=== PATIENT | female | born 1960 | race American Indian/Alaskan Native ===

== ENCOUNTER 2017-05-11 15:54 | Inpatient (IN) | payer OTHER ==
[2017-05-11 17:13] LABS: Alanine Aminotransferase 25 units/L (7-56); Albumin 4.5 g/dL (3.9-5); Albumin/Globulin Ratio 1.3 %; Alkaline Phosphatase 52 units/L (35-129); Anion Gap 20 mmol/L; BUN/Creatinine Ratio 12.22; Blood Urea Nitrogen 11 mg/dL (7-17); Calcium 10.6 mg/dL (8.4-10.2); Carbon Dioxide 26 mmol/L (22-30); Chloride 99.9 mmol/L (98-107); Glucose 91 mg/dL (65-100); Lipase 27 units/L (13-60); Potassium 3.8 mmol/L (3.6-5.0); Sodium 142 mmol/L (137-145); Total Protein 8.1 g/dL (6.3-8.2)
[2017-05-11 17:28] LABS: Basophils % (Auto) 0.9 % (0.0-1.8); Eosinophils % (Auto) 4.3 % (0.0-4.3); Hematocrit 38.3 % (30.3-42.9); Hemoglobin 12.1 gm/dl (10.1-14.3); Mean Corpuscular HGB Conc 32 % (30-34); Mean Corpuscular Hemoglobin 29 pg (28-32); Mean Corpuscular Volume 92 fl (79-97); Platelet Count 326 K/mm3 (140-440); Red Blood Count 4.16 M/mm3 (3.65-5.03); Red Cell Distribution Width 15.3 % (13.2-15.2); White Blood Count 6.1 K/mm3 (4.5-11.0)
[2017-05-11 17:48] LABS: Bilirubin,Urine NEG (Negative); Blood,Urine SM (Negative); Ketones,Urine NEG (Negative); Leukocyte Esterase,Urine TR (Negative); Mucus,Urine FEW /HPF; Nitrite,Urine NEG (Negative); Protein,Urine <15 mg/dL mg/dL (Negative)
[2017-05-11] MEDS ORDERED: NACL 0.9% 1000 ML 1,000 ML IV ONE (19:05)
[2017-05-11] MEDS ORDERED: ZOFRAN IV ONE (19:05)
[2017-05-11] MEDS ORDERED: MORPHINE IV ONE (19:05)
--- NOTE | 2017-05-11 19:56 | Cat Scan Report ---
FINAL REPORT EXAM: CT ABDOMEN PELVIS WO CON HISTORY: abd pain TECHNIQUE: CT images obtained through the Abdomen and Pelvis without contrast. Transaxial,coronal and sagittal reformats are provided. PRIORS: None. FINDINGS: Imaged intrathoracic contents are remarkable for a small pericardial effusion as well as coronary artery disease. Right renal nonobstructive stones measure 1 millimeter. Kidneys are normal in size, axis and position. No hydronephrosis or other nephrolithiasis. The ureters are normal in course and caliber. No stones are seen within the urinary bladder. Multiple pelvic phleboliths. The liver, gallbladder, pancreas, spleen, and adrenal glands demonstrate an unremarkable noncontrast appearance. Hollow enteric organs are normal in course and caliber. No acute appendicitis. Diverticulosis without surrounding inflammatory findings. No intra-abdominal free air/fluid or lymphadenopathy. Aorta is normal in course and caliber. Superficial soft tissues are remarkable for a midline laparotomy scar. No acute or aggressive appearing skeletal findings. IMPRESSION: No CT evidence of obstructive uropathy or other acute abdominal or pelvic findings. Small pericardial effusion. Correlation with symptoms of pericarditis requested. Consider echocardiogram for further evaluation.
[2017-05-11] MEDS ORDERED: NACL ONE (22:00)
--- NOTE | 2017-05-11 22:42 | Cat Scan Report ---
FINAL REPORT EXAM: CT ANGIO CHEST HISTORY: chest pain TECHNIQUE: CT imaging obtained through the chest in pulmonary angiographic phase following intravenous administration of contrast. Transaxial, Coronal and sagittal reformats including maximal intensity projections are provided. PRIORS: CT abdomen and pelvis of the same date. FINDINGS: Cardiomegaly. Small pericardial effusion. Coronary artery disease is present. Mildly enlarged main pulmonary artery. Well opacified pulmonary arterial tree. No pulmonary embolism. Thoracic aorta is normal in course and caliber. No pneumothorax, effusion or focal airspace disease. Linear bibasilar atelectasis/scarring. The central airways are patent. No bronchiectasis. Please see CT abdomen and pelvis of the same date. The superficial soft tissues are unremarkable. No acute bony abnormality or worrisome osseous lesions identified. IMPRESSION: No pulmonary embolism. Cardiomegaly with pericardial effusion. Correlation for pericarditis and heart failure is requested. Consider echocardiogram.
[2017-05-11] MEDS ORDERED: ASPIRIN PO ONE (23:03)
--- NOTE | 2017-05-11 23:10 | Emergency Department Report ---
HPI - General Chief Complaint: Abdominal Pain Time Seen by Provider: 05/11/17 18:41 - HPI HPI: Chief complaint: Chest and abdominal pain. This is a 56-year-old black female who presents to the ED with chest pain and right and left side, abdominal pain. Patient states pain is sharp, 7 out of 10 , with radiation to back. Patient denies any fever, chills, nausea vomiting. Patient does have a history of a blood pressure but has been without medication for a few months. She states she's moved here from [place] and has not been able to get a primary care doctor.. ED Past Medical Hx - Past Medical History Hx Hypertension: Yes Hx COPD: Yes Additional medical history: THYROID. HIGH CHOLESTEROL. SCIATICA. SLEEP APNEA - CPAP - Surgical History Hx Appendectomy: Yes Additional Surgical History: . HERNIA REPAIR - Social History Smoking Status: Former Smoker Substance Use Type: Prescribed ED Review of Systems ROS: Stated complaint: ABD PAIN Other details as noted in HPI Comment: All other systems reviewed and negative Cardiovascular: chest pain Gastrointestinal: abdominal pain, nausea Physical Exam - Physical Exam Vital Signs: Vital Signs 05/11/17 05/11/17 05/11/17 16:05 17:13 17:15 Temperature 98.3 F 99.3 F Pulse Rate 91 H 79 Respiratory 17 18 Rate Blood Pressure 132/90 Blood Pressure 136/84 [Left] O2 Sat by Pulse 96 99 100 Oximetry 05/11/17 19:58 Temperature Pulse Rate 82 Respiratory 18 Rate Blood Pressure Blood Pressure 132/84 [Left] O2 Sat by Pulse 91 Oximetry Physical Exam: Gen. alert and oriented 3 in no distress Head atraumatic normocephalic Eyes PERR LA EOMI Chest regular rate and rhythm normal S1-S2 lungs clear bilaterally Abdomen soft nondistended Back no point tenderness paravertebral tenderness Neuro no focal deficit. Psych normal mood. ED Course Vital Signs 05/11/17 05/11/17 05/11/17 16:05 17:13 17:15 Temperature 98.3 F 99.3 F Pulse Rate 91 H 79 Respiratory 17 18 Rate Blood Pressure 132/90 Blood Pressure 136/84 [Left] O2 Sat by Pulse 96 99 100 Oximetry 05/11/17 19:58 Temperature Pulse Rate 82 Respiratory 18 Rate Blood Pressure Blood Pressure 132/84 [Left] O2 Sat by Pulse 91 Oximetry ED Medical Decision Making - Lab Data Result diagrams: 05/11/17 16:23 05/11/17 16:23 Critical care attestation.: If time is entered above; I have spent that time in minutes in the direct care of this critically ill patient, excluding procedure time. ED Disposition Clinical Impression: Pericardial effusion Disposition: OP ADMIT IP TO THIS HOSP Is pt being admited?: Yes Does the pt Need Aspirin: No Condition: Stable Instructions: Abdominal Pain (ED) Referrals: PRIMARY CARE, [Primary Care Provider] - 3-5 Days
[2017-05-11] MEDS ORDERED: ASPIRIN ONE (23:12)
[2017-05-12] MEDS ORDERED: MILK OF MAGNESIA PO PRN (06:36)
[2017-05-12] MEDS ORDERED: TYLENOL PO PRN (06:36)
[2017-05-12] MEDS ORDERED: DILAUDID IV PRN (06:36)
[2017-05-12] MEDS ORDERED: DULCOLAX PR PRN (06:36)
[2017-05-12] MEDS ORDERED: ZOFRAN IV PRN (06:36)
--- NOTE | 2017-05-12 06:45 | History and Physical Report ---
History of Present Illness Date of examination: 05/11/17 Date of admission: 05/11/17 23:04 Chief complaint: Chief complaint: #1 Left-sided chest pain for 1 day #2 bilateral flank pain for 1 day History of present illness: History of present illness: 56-year-old female with history of hypertension comes in for left-sided chest pain with radiation to the back of one day duration. Patient also has bilateral flank pain. No shortness of breath. No nausea no vomiting. No fever no chills. No recent travel. No diaphoresis no palpitations. Slight shortness of breath present. On exertion. - Past Medical History Hx Hypertension: Yes Hx COPD: Yes Additional medical history: THYROID. HIGH CHOLESTEROL. SCIATICA. SLEEP APNEA - CPAP - Surgical History Hx Appendectomy: Yes Additional Surgical History: . HERNIA REPAIR - Social History Smoking Status: Former Smoker Substance Use Type: Prescribed Review of System: Constitutional: no fever, no chills, no weight loss Ears, eyes, nose, mouth and throat: no nasal congestion, no nasal discharge, no sinus pressure, no vision change, no red eye. Neck: No neck pain or rigidity. Cardiovascular: chest pain, no orthopnea, no palpitations, no leg swelling .see HPI Respiratory: No shortness of breath, no cough, no congestion, no wheezing Gastrointestinal: abdominal pain, no nausea, no vomiting Genitourinary : no dysuria, no hematuria Musculoskeletal: no joint swelling or muscle ache Integumentary: no rash, no pruritis Neurological: no parathesias, no numbness, no tingling Endocrine: no cold or heat intolerance, no polyuria or polydipsia Hematologic/Lymphatic: no easy bruising, no easy bleeding, no gland swelling Allergic/Immunologic: no urticaria, no angioedema. Medications and Allergies Allergies Allergy/AdvReac Type Severity Reaction Status Date / Time No Known Allergies Allergy Verified 05/11/17 19:57 Home Medications Medication Instructions Recorded Confirmed Last Taken Type Levothyroxine [Synthroid] 50 mcg PO QAM 05/12/17 05/12/17 Unknown History Pravastatin Sodium [Pravastatin] 10 mg PO QHS 05/12/17 05/12/17 Unknown History amLODIPine [Norvasc] 10 mg PO DAILY 05/12/17 05/12/17 Unknown History Active Meds: Active Medications Acetaminophen (Tylenol) 650 mg PO Q4H PRN PRN Reason: Pain MILD(1-3)/Fever >100.5/[place] Amlodipine Besylate (Norvasc) 10 mg PO DAILY [facility] Bisacodyl (Dulcolax) 10 mg HI QDAY PRN PRN Reason: Constipation unrelieved by MOM Hydromorphone HCl (Dilaudid) 0.5 mg IV Q3H PRN PRN Reason: Pain , Severe (7-10) Dextrose/Sodium Chloride (D5ns) 1,000 mls @ 75 mls/hr IV DIRECT HERMINIO Levothyroxine Sodium (Synthroid) 50 mcg PO QAM@0600 [facility] Magnesium Hydroxide (Milk Of Magnesia) 30 ml PO Q4H PRN PRN Reason: Constipation Ondansetron HCl (Zofran) 4 mg IV Q8H PRN PRN Reason: N/V unrelieved by Reglan Oxycodone/Acetaminophen (Percocet 5/325) 1 tab PO Q6H PRN PRN Reason: Pain, Moderate (4-6) Simvastatin (Zocor) 10 mg PO QHS [facility] Exam - Physical Exam Narrative exam: Lying in bed comfortably - Constitutional Vitals: Temp Pulse Resp BP Pulse Ox 98.3 F 78 18 139/86 98 05/12/17 01:33 05/12/17 01:33 05/12/17 01:33 05/12/17 01:33 05/12/17 01:33 General appearance: Present: no acute distress, well-nourished - EENT Eyes: Present: PERRL ENT: hearing intact, clear oral mucosa - Neck Neck: Present: supple, normal ROM - Respiratory Respiratory effort: normal Respiratory: bilateral: CTA - Cardiovascular Heart rate: 77 Rhythm: regular Heart Sounds: Present: S1 & S2. Absent: rub, click - Extremities Extremities: pulses symmetrical, No edema Peripheral Pulses: within normal limits - Abdominal General gastrointestinal: Present: soft, non-tender, non-distended, normal bowel sounds Female genitourinary: Present: normal - Rectal Rectal Exam: deferred - Integumentary Integumentary: Present: clear, warm, dry - Musculoskeletal Musculoskeletal: gait normal, strength equal bilaterally - Psychiatric Psychiatric: appropriate mood/affect, intact judgment & insight - Neurologic Neurologic: CNII-XII intact, moves all extremities - Allied Health Allied health notes reviewed: nursing, case management Results - Labs CBC & Chem 7: 05/11/17 16:23 05/11/17 16:23 Labs: Laboratory Last Values WBC 6.1 K/mm3 (4.5-11.0) 05/11/17 16:23 RBC 4.16 M/mm3 (3.65-5.03) 05/11/17 16:23 Hgb 12.1 gm/dl (10.1-14.3) 05/11/17 16:23 Hct 38.3 % (30.3-42.9) 05/11/17 16:23 MCV 92 fl (79-97) 05/11/17 16:23 MCH 29 pg (28-32) 05/11/17 16:23 MCHC 32 % (30-34) 05/11/17 16:23 RDW 15.3 % (13.2-15.2) H 05/11/17 16:23 Plt Count 326 K/mm3 (140-440) 05/11/17 16:23 Lymph % (Auto) 36.6 % (13.4-35.0) H 05/11/17 16:23 [place] % (Auto) 8.5 % (0.0-7.3) H 05/11/17 16:23 Eos % (Auto) 4.3 % (0.0-4.3) 05/11/17 16:23 Baso % (Auto) 0.9 % (0.0-1.8) 05/11/17 16:23 Lymph # 2.2 K/mm3 (1.2-5.4) 05/11/17 16:23 [place] # 0.5 K/mm3 (0.0-0.8) 05/11/17 16:23 Eos # 0.3 K/mm3 (0.0-0.4) 05/11/17 16:23 Baso # 0.1 K/mm3 (0.0-0.1) 05/11/17 16:23 Seg Neutrophils % 49.7 % (40.0-70.0) 05/11/17 16:23 Seg Neutrophils # 3.0 K/mm3 (1.8-7.7) 05/11/17 16:23 Sodium 142 mmol/L (137-145) 05/11/17 16:23 Potassium 3.8 mmol/L (3.6-5.0) 05/11/17 16:23 Chloride 99.9 mmol/L (98-107) 05/11/17 16:23 Carbon Dioxide 26 mmol/L (22-30) 05/11/17 16:23 Anion Gap 20 mmol/L 05/11/17 16:23 BUN 11 mg/dL (7-17) 05/11/17 16:23 Creatinine 0.9 mg/dL (0.7-1.2) 05/11/17 16:23 Estimated GFR > 60 ml/min 05/11/17 16:23 BUN/Creatinine Ratio 12.22 % 05/11/17 16:23 Glucose 91 mg/dL (65-100) 05/11/17 16:23 Calcium 10.6 mg/dL (8.4-10.2) H 05/11/17 16:23 Total Bilirubin 0.40 mg/dL (0.1-1.2) 05/11/17 16:23 AST 46 units/L (5-40) H 05/11/17 16:23 ALT 25 units/L (7-56) 05/11/17 16:23 Alkaline Phosphatase 52 units/L (35-129) 05/11/17 16:23 Troponin T 0.029 ng/mL (0.00-0.029) 05/11/17 22:56 NT-Pro-B Natriuret Pep 22.30 pg/mL (0-900) 05/11/17 22:56 Total Protein 8.1 g/dL (6.3-8.2) 05/11/17 16:23 Albumin 4.5 g/dL (3.9-5) 05/11/17 16:23 Albumin/Globulin Ratio 1.3 % 05/11/17 16:23 Lipase 27 units/L (13-60) 05/11/17 16:23 Urine Color Yellow (Yellow) 05/11/17 16:32 Urine Turbidity Clear (Clear) 05/11/17 16:32 Urine pH 6.0 (5.0-7.0) 05/11/17 16:32 Ur Specific [place] 1.014 (1.003-1.030) 05/11/17 16:32 Urine Protein <15 mg/dl mg/dL (Negative) 05/11/17 16:32 Urine Glucose (UA) Neg mg/dL (Negative) 05/11/17 16:32 Urine Ketones Neg mg/dL (Negative) 05/11/17 16:32 Urine Blood Sm (Negative) 05/11/17 16:32 Urine Nitrite Neg (Negative) 05/11/17 16:32 Urine Bilirubin Neg (Negative) 05/11/17 16:32 Urine Urobilinogen 2.0 mg/dL (<2.0) 05/11/17 16:32 Ur Leukocyte Esterase Tr (Negative) 05/11/17 16:32 Urine WBC (Auto) 1.0 /HPF (0.0-6.0) 05/11/17 16:32 Urine RBC (Auto) 1.0 /HPF (0.0-6.0) 05/11/17 16:32 U Epithel Cells (Auto) 2.0 /HPF (0-13.0) 05/11/17 16:32 Hyaline Casts 1 /LPF 05/11/17 16:32 Urine Mucus Few /HPF 05/11/17 16:32 Short CBC 05/11/17 Range/Units 16:23 WBC 6.1 (4.5-11.0) K/mm3 Hgb 12.1 (10.1-14.3) gm/dl Hct 38.3 (30.3-42.9) % Plt Count 326 (140-440) K/mm3 BMP 05/11/17 16:23 Sodium 142 Potassium 3.8 Chloride 99.9 Carbon Dioxide 26 BUN 11 Creatinine 0.9 Glucose 91 Calcium 10.6 H Cardiac Enzymes 05/11/17 Range/Units 22:56 Troponin T 0.029 (0.00-0.029) ng/mL Liver Function 05/11/17 Range/Units 16:23 Total Bilirubin 0.40 (0.1-1.2) mg/dL AST 46 H (5-40) units/L ALT 25 (7-56) units/L Alkaline Phosphatase 52 (35-129) units/L Albumin 4.5 (3.9-5) g/dL Urine 05/11/17 Range/Units 16:32 Urine Color Yellow (Yellow) Urine pH 6.0 (5.0-7.0) Ur Specific [place] 1.014 (1.003-1.030) Urine Protein <15 mg/dl (Negative) mg/dL Urine Glucose (UA) Neg (Negative) mg/dL - Imaging and Cardiology EKG: report reviewed (normal sinus rhythm: heart rate of 77/m) CT scan - abdomen: report reviewed (no acute abdominal findings small pericardial effusion correlation with symptoms of pericarditis consider echocardiogram for further evaluation) CT scan - chest: report reviewed (CT angio cardiomegaly with pericardial effusion correlation for pericarditis and heart failure is requested consider echocardiogram) Assessment and Plan Advance Directives: Yes (full code) VTE prophylaxis?: Chemical Plan of care discussed with patient/family: Yes - Patient Problems (1) Acute coronary syndrome Current Visit: Yes Status: Acute Plan to address problem: Serial cardiac enzymes and Lexiscan (2) Pericardial effusion Current Visit: Yes Status: Acute Plan to address problem: With pericarditis. We will get echocardiogram for better delineation of pericardial effusion. Also cardiology consult requested by [facility] who called today. (3) Hypertension Current Visit: Yes Status: Chronic Qualifiers: Hypertension type: essential hypertension Qualified Code(s): I10 - Essential (primary) hypertension Plan to address problem: Continue antihypertensives (4) Hypothyroidism Current Visit: Yes Status: Chronic Qualifiers: Hypothyroidism type: acquired Qualified Code(s): E03.9 - Hypothyroidism, unspecified Plan to address problem: Continue Synthroid (5) DVT prophylaxis Current Visit: Yes Status: Acute Plan to address problem: On Lovenox 40 mg subcutaneous daily
[2017-05-12 07:46] LABS: Creatine Kinase MB 15.4 ng/mL (0.0-4.0)
[2017-05-12] MEDS ORDERED: LEXISCAN IV ONE ×2 (10:03→10:06)
[2017-05-12] MEDS ORDERED: PERCOCET 5/325 ONE (11:52)
--- NOTE | 2017-05-12 11:59 | Progress Note ---
Assessment and Plan Assessment and plan: Patient is a 56-year-old woman history of COPD, dyslipidemia and hypertension who presents to [facility] emergency department with chest pains. Troponins are negative 2 but she does have elevated CPK. CT abdomen and pelvis without contrast read as no CT evidence of obstructive uropathy or other acute abdominal pelvic finding, small pericardial effusion, correlation with symptoms of pericarditis requested, consider echocardiogram for further evaluation. CTA of the chest read as no pulmonary embolism, cardiomegaly with pericardial effusion. Echocardiogram, stress test pending -Chest pain appears to be atypical: Stress test pending -Pericardial effusion: Echocardiogram pending -Mild rhabdomyolysis: Start IV fluids and repeat BMP in a.m. with CK -Hypercalemia, mild: Hydrate and repeat levels -DVT prophylaxis: Subcutaneous Lovenox Full code Disposition: Follow-up echocardiogram stress test and if unremarkable and DC tomorrow History Interval history: Patient seen and examined. Follow up on current diagnosis/chest pain. Overnight uneventful. No sob, n/v or severe headaches. Imaging, old records, testing, labs , nursing notes reviewed. She complains of diffuse bilateral chest pain and asking for something stronger morphine. Recently moved to [place] from [facility] with no prior records here. Hospitalist Physical - Physical exam Narrative exam: GEN: WDWN, NAD, AWAKE, ALERT, ORIENTATED x 3 HEENT: NCAT, PERRL, EOMI, OP CLEAR NECK: SUPPLE, NO THYROMEGALY, NO JVD, NO LAD CVS: RRR, NORMAL S1S2 LUNGS/CHEST: CTA B, NORMAL CHEST EXPANSION B, GOOD AIR ENTRY B, reproducible chest wall tenderness ABD: SOFT, NTND, GBS, NO REBOUND OR GUARDING EXT/SKIN: NO SIGNIFICANT EDEMA OR RASH MSK: FROM X 4 EXTREMITIES NEURO: CN 2-12 GROSSLY INTACT, NO FOCAL DEFICITS PSY: Anxious - Constitutional Vitals: Temp Pulse Resp BP Pulse Ox 98.0 F 68 20 125/76 96 05/12/17 08:29 05/12/17 10:00 05/12/17 10:00 05/12/17 08:29 05/12/17 10:00 General appearance: Present: no acute distress, well-nourished Results - Labs CBC & Chem 7: 05/11/17 16:23 05/11/17 16:23 Labs: Laboratory Last Values WBC 6.1 K/mm3 (4.5-11.0) 05/11/17 16: RBC 4.16 M/mm3 (3.65-5.03) 05/11/17 16:23 Hgb 12.1 gm/dl (10.1-14.3) 05/11/17 16:23 Hct 38.3 % (30.3-42.9) 05/11/17 16:23 MCV 92 fl (79-97) 05/11/17 16:23 MCH 29 pg (28-32) 05/11/17 16:23 MCHC 32 % (30-34) 05/11/17 16:23 RDW 15.3 % (13.2-15.2) H 05/11/17 16:23 Plt Count 326 K/mm3 (140-440) 05/11/17 16:23 Lymph % (Auto) 36.6 % (13.4-35.0) H 05/11/17 16:23 [place] % (Auto) 8.5 % (0.0-7.3) H 05/11/17 16:23 Eos % (Auto) 4.3 % (0.0-4.3) 05/11/17 16:23 Baso % (Auto) 0.9 % (0.0-1.8) 05/11/17 16:23 Lymph # 2.2 K/mm3 (1.2-5.4) 05/11/17 16:23 [place] # 0.5 K/mm3 (0.0-0.8) 05/11/17 16:23 Eos # 0.3 K/mm3 (0.0-0.4) 05/11/17 16:23 Baso # 0.1 K/mm3 (0.0-0.1) 05/11/17 16:23 Seg Neutrophils % 49.7 % (40.0-70.0) 05/11/17 16: Seg Neutrophils # 3.0 K/mm3 (1.8-7.7) 05/11/17 16:23 Sodium 142 mmol/L (137-145) 05/11/17 16:23 Potassium 3.8 mmol/L (3.6-5.0) 05/11/17 16:23 Chloride 99.9 mmol/L (98-107) 05/11/17 16:23 Carbon Dioxide 26 mmol/L (22-30) 05/11/17 16:23 Anion Gap 20 mmol/L 05/11/17 16:23 BUN 11 mg/dL (7-17) 05/11/17 16:23 Creatinine 0.9 mg/dL (0.7-1.2) 05/11/17 16:23 Estimated GFR > 60 ml/min 05/11/17 16:23 BUN/Creatinine Ratio 12.22 % 05/11/17 16:23 Glucose 91 mg/dL (65-100) 05/11/17 16:23 Calcium 10.6 mg/dL (8.4-10.2) H 05/11/17 16:23 Total Bilirubin 0.40 mg/dL (0.1-1.2) 05/11/17 16:23 AST 46 units/L (5-40) H 05/11/17 16:23 ALT 25 units/L (7-56) 05/11/17 16:23 Alkaline Phosphatase 52 units/L (35-129) 05/11/17 16:23 Total Creatine Kinase 1113 units/L (30-135) H 05/12/17 06:46 CK-MB (CK-2) 15.4 ng/mL (0.0-4.0) H 05/12/17 06:46 CK-MB (CK-2) Rel Index 1.3 (0-4) 05/12/17 06:46 Troponin T 0.029 ng/mL (0.00-0.029) 05/12/17 06:46 NT-Pro-B Natriuret Pep 22.30 pg/mL (0-900) 05/11/17 22:56 Total Protein 8.1 g/dL (6.3-8.2) 05/11/17 16:23 Albumin 4.5 g/dL (3.9-5) 05/11/17 16:23 Albumin/Globulin Ratio 1.3 % 05/11/17 16:23 Lipase 27 units/L (13-60) 05/11/17 16:23 Urine Color Yellow (Yellow) 05/11/17 16:32 Urine Turbidity Clear (Clear) 05/11/17 16:32 Urine pH 6.0 (5.0-7.0) 05/11/17 16:32 Ur Specific [place] 1.014 (1.003-1.030) 05/11/17 16:32 Urine Protein <15 mg/dl mg/dL (Negative) 05/11/17 16:32 Urine Glucose (UA) Neg mg/dL (Negative) 05/11/17 16:32 Urine Ketones Neg mg/dL (Negative) 05/11/17 16:32 Urine Blood Sm (Negative) 05/11/17 16:32 Urine Nitrite Neg (Negative) 05/11/17 16:32 Urine Bilirubin Neg (Negative) 05/11/17 16:32 Urine Urobilinogen 2.0 mg/dL (<2.0) 05/11/17 16:32 Ur Leukocyte Esterase Tr (Negative) 05/11/17 16:32 Urine WBC (Auto) 1.0 /HPF (0.0-6.0) 05/11/17 16:32 Urine RBC (Auto) 1.0 /HPF (0.0-6.0) 05/11/17 16:32 U Epithel Cells (Auto) 2.0 /HPF (0-13.0) 05/11/17 16:32 Hyaline Casts 1 /LPF 05/11/17 16:32 Urine Mucus Few /HPF 05/11/17 16:32
--- NOTE | 2017-05-12 12:16 | Admit Criteria Form ---
Admission Criteria Documentation: CARDIOLOGY GRG Clinical Indications for Admission to Inpatient Care ( Place 'X' for any and all applicable criteria): Hospital admission is needed for appropriate care of the patient because of ANY ONE of the following (1): [ ] I. Hemodynamic instability as indicated by ALL of the following (1)(2)(3) (4)(5) [ ]a) Vital signs or other findings not as expected for chronic patient condition or baseline [ ]b) Instability indicated by ANY ONE of the following: [ ]i) Hypotension [ ]ii) Symptomatic Tachycardia unresponsive to treatment ( e.g., analgesia, fluids, sedation as indicated) [ ]iii) Inadequate perfusion indicated by ANY ONE of the following: [ ] 1) Lactic acidosis (> 2 mmol/L) [ ] 2) New abnormal capillary refill (> 3 seconds) [ ] 3) Reduced urine output [ ] 4) New altered mental status [ ]iv) Orthostatic vital sign changes unresponsive to treatment (e.g., fluids) [ ]v) IV inotropic or vasopressor medication required to maintain adequate blood pressure or perfusion [ ] II. Severe heart failure as indicated by ANY ONE of the following(17)(18) [ ]a) Respiratory distress [ ]b) Hypotension [ ]c) Anasarca (refractory to outpatient therapy) [ ]d) Cardiac arrhythmias of immediate concern [ ]e) Myocardial ischemia [ ] III. Cardiac arrhythmias or findings of immediate concern indicated by ANY ONE of the following (19)(20): [ ] a) Heart rhythms that are inherently dangerous or unstable indicated by ANY ONE of the following (21)(22)(23): [ ] i) Resuscitated ventricular fibrillation or cardiac arrest [ ] ii) Ventricular escape rhythm [ ] iii) Sustained ventricular tachycardia (30 seconds or more of ventricular rhythm at greater than 100 beats per minute) [ ] iv) Nonsustained ventricular tachycardia and ANY ONE of the following: [ ] 1) Suspected cardiac ischemia as cause or consequence of ventricular tachycardia [ ] 2) In setting of acute myocarditis [ ] b) Unstable cardiac conduction defects indicated by ANY ONE of the following(23)(24)(25) [ ] i) Type II second-degree atrioventricular block [ ]ii) Third-degree atrioventricular block [ ]iii) New-onset left bundle branch block with suspected myocardial ischemia [ ]c) Any heart rhythm and ANY ONE of the following (21)(22)(26)(27) (28) [ ] i) Continuous long-term ECG monitoring needed (e.g., initiation of drug requiring monitoring for more than 24 hours) [ ] ii) Patient has automatic implanted cardioverter defibrillator that is repeatedly firing, malfunctioning, or in need of immediate adjustment of settings beyond the scope of ambulatory or observation care [ ]d) Heart rhythms of concern due to ANY ONE of the following: [ ] i) Hypotension [ ] ii) Respiratory distress [ ] iii) Association with other significant symptoms (e.g., bradycardia with syncope or ongoing dizziness, supraventricular tachycardia with chest pain (14)(15)(17) [ ] IV. Monitoring for cardiac contusion beyond the scope of observation care needed [A](30)(31)(32) [ ] V. Surgical or device complication (e.g., valve replacement complication , pacemaker dysfunction) (35)(41)(44)(45)(46) [ ] . Inpatient palliative care needed. [B](49) Also use Inpatient Palliative Care Criteria [ ] VII. Nonbacterial thrombotic (marantic) endocarditis (36)(43)(47)(48) [X] VIII. Cardiology condition, symptom, or finding for which emergency and observation care has failed or are not considered appropriate. [ ] IX. Acute valvular disease requiring inpatient as indicated by ANY ONE of the following (41) [ ]a) Acute valvular regurgitation (42) [ ]b) Noninfectious valvulitis (43) [ ]c) Obstructive valve thrombosis [ ]d) Paravalvular leak [ ]e) Other significant valvular disorder remaining after emergency or observation level of care (as appropriate) [X]X. Pericardial disease requiring inpatient treatment as indicated by ANY ONE of the following (33)(34)(35)(36)(37) [ ]a) Suspected tamponade (38)(39)(40) [ ]b) Hemopericardium [X]c) Other significant pericardial disorder remaining after emergency or observation level of care (as appropriate) [ ] XI. Cardiac ischemia beyond scope of emergency and observation care. [ ] XII. Hypertension requiring inpatient treatment as indicated by ANY ONE of the following (6)(7)(8) [ ]a) SBP greater than 220 mm Hg or DBP greater than 120 mmHg despite treatment [ ]b) SBP greater than 140 mm Hg or DBP greater than 100 mm Hg with evidence of acute end organ damage as indicated by ANY ONE of the following [ ] i) Altered mental status [ ] ii) Acute renal failure as indicated by new onset of ANY ONE of the following (9)(10)(11)(12)(13) [ ]1) 3-fold rise in serum creatinine from baseline [ ]2) Serum creatinine greater than 4 mg/dL ( 354 micromoles/L) with acute rise greater than 0.5 mg/dL (44.2 micromoles/L) [ ]3) Reduction of more than 75% in estimated glomerular filtration rate from baseline [ ]4) Estimated glomerular filtration rate less than 35 mL/min/1.73m2 (0.59 mL/sec/1.73m2) in child up to 18 years of age [ ]5) Cessation of urine output indicated by ALL of the following [ ]A. Adequate volume status [ ]B. Inadequate urine output as indicated by ANY ONE of the following [ ]a. Urine output less than 0.3 mL/kg/hr for 24 hours [ ]b. Anuria (urine output less than 0.1 mL/kg/hr) for 12 hours [ ] iii) Aortic dissection [ ] iv) Myocardial Ischemia [ ] v) Left ventricular heart failure [ ]vi) Retinal Hemorrhage [ ]vii) Other significant finding [ ]c) Hypertension in child requiring inpatient treatment as indicated by ALL of the following(14)(15)(16) [ ] i) Outpatient treatment not effective, not available, or not appropriate [ ]ii) SBP or DBP greater than 95th percentile for age [ ]iii) Evidence of acute end organ damage as indicated by ANY ONE of the following [ ]1) Altered mental status [ ]2) Acute renal failure as indicated by new onset of ANY ONE of the following(9)(10)(11)(12)(13) [ ]A. 3-fold rise in serum creatinine from baseline [ ]B. Serum creatinine greater than 4 mg/dL (354 micromoles/L) with acute rise greater than 0.5 mg/dL (44.2 micromoles/L) [ ]C. Reduction of more than 75% in estimated glomerular filtration rate from baseline [ ]D. Estimated glomerular filtration rate less than 35 mL/min/1.73m2 (0.59 mL/sec/1.73m2) in child up to 18 years of age [ ]E. Cessation of urine output indicated by ALL of the following [ ]a. Adequate volume status [ ]b. Inadequate urine output as indicated by ANY ONE of the following [ ]i) Urine output less than 0.3 mL/kg/hr for 24 hours [ ]ii) Anuria ( urine output less than 0.1 mL/kg/hr) for 12 hours [ ]3) Severe headache [ ]4) Visual disturbance [ ]5) Retinal hemorrhage [ ]6) Other significant finding [ ]XIII. Complications of transplanted heart indicated by ANY ONE of the following(61): [ ]a) Acute graft rejection requiring inpatient management (eg, intravenous immunosuppression)(62)(63) [ ]b) Acute graft heart failure indicated by ANY ONE of the following(64): [ ]i) Hemodynamic instability [ ]ii) Cardiac arrhythmias of immediate concern [ ]iii) Pulmonary edema that is very severe (eg, mechanical ventilation needed, imminent or likely, need for 100% oxygen to keep oxygen saturation above 90%) [ ]iv) Pulmonary edema that is persistent as indicated by ALL of the following: [ ]1) New need for oxygen therapy to keep oxygen saturation above 90% (or increased FiO2 need from baseline) [ ]2) Has not improved sufficiently with emergency department or observation care IV diuretics or other heart failure treatments[E] [ ]v) Altered mental status that is severe or persistent [ ]vi) Increased creatinine (new on laboratory test) with reduction of more than 50% in estimated glomerular filtration rate from baseline [ ]vii) Progressively (ongoing) rising creatinine (known from past laboratory test) with reduction of more than 25% in estimated glomerular filtration rate from baseline [ ]viii) Acute renal failure [ ]ix) Acute peripheral ischemia (eg, examination shows pulseless, cool, mottled, or cyanotic extremity) [ ]x) Pulmonary artery catheter monitoring needed [ ]xi) Other sign or symptom of heart failure requiring inpatient treatment (ie, too severe or not responsive to outpatient and observation care treatment) [ ]c) Infection requiring inpatient management (eg, Hemodynamic instability, need for intravenous antimicrobial treatment)(66)(67)(68)(69)(70) [ ]d) Cardiac allograft vasculopathy requiring inpatient management ( eg evidence of cardiac ischemia)(71) [ ]e) Other complication of transplanted heart (eg, stroke, severe pulmonary hypertension, severe valvular dysfunction) requiring inpatient management(72) The original [facility] [employer] content created by [facility] [employer] has been revised. The portions of the content which have been revised are identified through the use of italic text or in bold, and [facility] has neither reviewed nor approved the modified material. All other unmodified content is copyright [facility] [employer]. Please see references footnoted in the original [facility] [employer] edition 2016 Admission Criteria Met: Yes
[2017-05-12] MEDS: PERCOCET 5/325 PO PRN (12:17)
--- NOTE | 2017-05-12 13:10 | Consultation ---
History of Present Illness Consult date: 05/12/17 Consult reason: chest pain History of present illness: This patient's a 56-year-old woman admitted with chest pain. Cardiac consultation was requested for chest pain evaluation. The patient describes a 3 week history of intermittent chest pain which she describes as located on both sides of the chest, underneath the breasts. There is no pleuritic or positional component. There is some tenderness to palpation, but is difficult to generate reproducible pain by palpation over the location of pain. There is no rash identified underneath the breasts. Serial ECGs done in the hospital, some of which were done with active chest pain complaints have been sinus rhythm, normal ECG with no ST or T-wave abnormalities. Specifically, there are no ST changes of ischemia or pericarditis on the EKGs. Cardiac enzymes reveal a CPK of 1113, but insignificant MB fraction of 1.3%. Troponin is negative. Enzyme profile is consistent with rhabdomyolysis. A CT of the chest ordered in the emergency room reported a "small pericardial effusion". Past History Past Medical History: hypertension Medications and Allergies Allergies Allergy/AdvReac Type Severity Reaction Status Date / Time No Known Allergies Allergy Verified 05/11/17 19:57 Home Medications Medication Instructions Recorded Confirmed Last Taken Type Levothyroxine [Synthroid] 50 mcg PO QAM 05/12/17 05/12/17 Unknown History Pravastatin Sodium [Pravastatin] 10 mg PO QHS 05/12/17 05/12/17 Unknown History amLODIPine [Norvasc] 10 mg PO DAILY 05/12/17 05/12/17 Unknown History Active Meds: Active Medications Acetaminophen (Tylenol) 650 mg PO Q4H PRN PRN Reason: Pain MILD(1-3)/Fever >100.5/[place]WELL Amlodipine Besylate (Norvasc) 10 mg PO DAILY HERMINIO Bisacodyl (Dulcolax) 10 mg RI QDAY PRN PRN Reason: Constipation unrelieved by MOM Enoxaparin Sodium (Lovenox) 40 mg SUB-Q QDAY@2200 HERMINIO Hydromorphone HCl (Dilaudid) 0.5 mg IV Q3H PRN PRN Reason: Pain , Severe (7-10) Dextrose/Sodium Chloride (D5ns) 1,000 mls @ 75 mls/hr IV DIRECT HERMINIO Levothyroxine Sodium (Synthroid) 50 mcg PO QAM@0600 HERMINIO Magnesium Hydroxide (Milk Of Magnesia) 30 ml PO Q4H PRN PRN Reason: Constipation Ondansetron HCl (Zofran) 4 mg IV Q8H PRN PRN Reason: N/V unrelieved by Reglan Oxycodone/Acetaminophen (Percocet 5/325) 1 tab PO Q6H PRN PRN Reason: Pain, Moderate (4-6) Last Admin: 05/12/17 12:17 Dose: 1 tab Simvastatin (Zocor) 10 mg PO QHS [facility] Review of Systems Cardiovascular: chest pain, no orthopnea, no palpitations, no rapid/irregular heart beat, no edema, no syncope, no lightheadedness, no shortness of breath Physical Examination Vital Signs Temp Pulse Resp BP Pulse Ox 98.3 F 91 H 17 132/90 96 05/11/17 16:05 05/11/17 16:05 05/11/17 16:05 05/11/17 16:05 05/11/17 16:05 General appearance: no acute distress HEENT: Positive: PERRL Neck: Positive: neck supple Cardiac: Positive: Reg Rate and Rhythm Lungs: Positive: clear to auscultation Neuro: Positive: Grossly Intact Abdomen: Positive: Soft Female genitourinary: deferred Skin: Positive: Clear Extremities: Absent: edema Results 05/11/17 16:23 05/11/17 16:23 Cardiac Enzymes 05/12/17 Range/Units 06:46 CK-MB (CK-2) 15.4 H (0.0-4.0) ng/mL EKG interpretations - Telemetry EKG Rhythm: Sinus Rhythm Assessment and Plan - Patient Problems (1) Chest pain Current Visit: Yes Status: Acute Qualifiers: Chest pain type: C Ischemic chest pain type: I Plan to address problem: Patient presents with atypical chest pain, serial ECGs are normal sinus rhythm, normal ECG with no ST changes. Enzyme profile is consistent with rhabdomyolysis. The patient underwent a Persantine thallium stress test today, results are normal. Echocardiogram is pending for left ventricular function assessment. (2) Pericardial effusion Current Visit: Yes Status: Acute Plan to address problem: A "small pericardial effusion" was reported on CT scan chest, as an incidental finding. We'll get an echocardiogram for further assessment of possible pericardial effusion.
[2017-05-12] MEDS: D5NS 1,000 ML IV SCH (14:40)
[2017-05-12] MEDS: NORVASC PO SCH (14:43)
[2017-05-12] MEDS: SYNTHROID PO SCH (14:43)
[2017-05-12 15:04] LABS: Creatine Kinase MB 18.1 ng/mL (0.0-4.0)
[2017-05-12 20:01] LABS: Creatine Kinase MB 15.4 ng/mL (0.0-4.0)
[2017-05-12] MEDS ORDERED: LOVENOX SUB-Q SCH (22:00)
[2017-05-12] MEDS ORDERED: ZOCOR PO SCH (22:00)
[2017-05-12] MEDS ORDERED: NON-FORMULARY (Pravastatin Sodium [Pravastatin] 10 MG) PO SCH (22:00)
[2017-05-13] MEDS: D5NS 1,000 ML IV SCH (03:56)
[2017-05-13] MEDS: SYNTHROID PO SCH (05:34)
[2017-05-13] MEDS: PERCOCET 5/325 PO PRN (05:54)
[2017-05-13 06:32] LABS: Alanine Aminotransferase 23 units/L (7-56); Albumin 3.9 g/dL (3.9-5); Albumin/Globulin Ratio 1.2 %; Alkaline Phosphatase 50 units/L (35-129); Anion Gap 17 mmol/L; BUN/Creatinine Ratio 23.33; Blood Urea Nitrogen 14 mg/dL (7-17); Calcium 9.7 mg/dL (8.4-10.2); Carbon Dioxide 25 mmol/L (22-30); Chloride 103.8 mmol/L (98-107); Glucose 105 mg/dL (65-100); Potassium 3.5 mmol/L (3.6-5.0); Sodium 142 mmol/L (137-145); Total Protein 7.2 g/dL (6.3-8.2)
[2017-05-13 09:10] VITALS: BP 125/77
[2017-05-13] MEDS: NORVASC PO SCH (09:14)
--- NOTE | 2017-05-13 10:07 | Discharge Summary ---
Providers - Providers Date of Admission: 05/11/17 23:04 Date of discharge: 05/13/17 Attending physician: ARPITA PATEL 05/12/17 06:36 Consult to Physician [CONS] Routine Consulting Provider: GIOVANNY BURCH Reason For Exam: pericardial effusion Place consult to:: Paula Notified:: Jerry Phone number called:: In house Was contact made?: Yes If yes, spoke with:: Jerry Time called:: 09:03 Primary care physician: SETTER OUT Hospitalization Reason for admission: cp Condition: Stable Hospital course: This is a 56-year-old female who presented through the emerge department with complaints of chest pain. Patient reported a 3 week history of intermittent chest pain which she described as located on both sides of the chest underneath the breast. Patient denies any pleuritic or positional component. Patient does report some tenderness to palpation. Patient was seen by cardiology in consultation. EKG was normal with no ST-T wave changes. Cardiac enzymes revealed a CPK of 1113 but insignificant MB fraction of 1.3%. Troponin was negative. Cardiology felt that the enzyme profile was consistent with rhabdomyolysis. CT chest reported a small pericardial effusion. Echocardiogram revealed a trivial degree of the pericardial effusion. EF was 40 -45%. Moderate moderate concentric left ventricular hypertrophy was observed. Left ventricular systolic function mildly decreased. Patient also was noted on admission to have hypercalcemia which resolved with IV fluid hydration. Stress thallium was found to be negative. Patient is felt to have received maximal hospital benefit. Dedicated discharge time 31 minutes. Disposition: LA-01 TO HOME OR SELFCARE Time spent for discharge: 31 Core Measure Documentation - Palliative Care Palliative Care/ Comfort Measures: Not Applicable - Core Measures Any of the following diagnoses?: none Exam - Constitutional Vitals: Temp Pulse Resp BP Pulse Ox 98.3 F 77 18 125/77 96 05/13/17 09:09 05/13/17 09:09 05/13/17 09:09 05/13/17 09:09 05/13/17 09:09 General appearance: Present: no acute distress, well-nourished - EENT Eyes: Present: PERRL ENT: hearing intact, clear oral mucosa - Neck Neck: Present: supple, normal ROM - Respiratory Respiratory effort: normal Respiratory: bilateral: CTA - Cardiovascular Heart Sounds: Present: S1 & S2. Absent: rub, click - Extremities Extremities: pulses symmetrical, No edema Peripheral Pulses: within normal limits - Abdominal General gastrointestinal: Present: soft, non-tender, non-distended, normal bowel sounds Female genitourinary: Present: normal - Integumentary Integumentary: Present: clear, warm, dry - Musculoskeletal Musculoskeletal: gait normal, strength equal bilaterally - Psychiatric Psychiatric: appropriate mood/affect, intact judgment & insight - Neurologic Neurologic: CNII-XII intact, moves all extremities Plan Activity: no restrictions Weight Bearing Status: Full Weight Bearing Diet: low fat, low cholesterol, low salt Follow up with: PRIMARY CAREMD [Primary Care Provider] - 3-5 Days CONCHA STAPLES MD [Staff Physician] - 7 Days Prescriptions: amLODIPine [Norvasc] 10 mg PO DAILY #30 tablet Levothyroxine [Synthroid] 50 mcg PO QAM #30 tablet oxyCODONE /ACETAMINOPHEN [Percocet 5/325 mg] 1 tab PO Q6H PRN #20 tablet PRN Reason: Pain, Moderate (4-6) Pravastatin Sodium [Pravastatin] 10 mg PO QHS #30 tablet
--- NOTE | 2017-05-13 11:15 | Progress Note ---
Assessment and Plan Atypical chest pain normal MPI this admission Rhabdomyolysis Pericardial effusion small pericardial effusion reported on CT scan chest, as an incidental finding. An echocardiogram reports a trival pericardial effusion. EF 40-45%. Hypertension Hypothyroidism No further cardiac workup indicated. Subjective Date of service: 05/13/17 Interval history: Patient reports she is feeling better. Objective Vital Signs Temp Pulse Pulse Resp BP BP Pulse Ox 05/13/17 10:14 70 18 96 05/13/17 09:09 98.3 F 77 18 125/77 96 05/13/17 08:03 68 05/13/17 04:20 98.5 F 74 18 124/78 98 05/13/17 01:57 98 05/13/17 01:15 87 18 94 05/13/17 00:30 98.6 F 86 20 138/76 95 05/12/17 20:20 98.8 F 80 20 135/80 94 05/12/17 19:25 70 05/12/17 17:00 98.5 F 74 20 119/71 93 05/12/17 11:35 76 102/65 05/12/17 11:34 79 117/67 05/12/17 11:33 89 108/71 05/12/17 11:32 89 92/72 05/12/17 11:31 100 H 100/74 05/12/17 11:30 86 111/75 - Physical Examination General: No Apparent Distress HEENT: Positive: PERRL Neck: Positive: neck supple Cardiac: Positive: Reg Rate and Rhythm Lungs: Positive: Decreased Breath Sounds Neuro: Positive: Grossly Intact Extremities: Absent: edema - Labs and Meds Cardiac Enzymes 05/12/17 05/12/17 05/13/17 Range/Units 14:22 19:02 05:24 AST 37 (5-40) units/L CK-MB (CK-2) 18.1 H 15.4 H (0.0-4.0) ng/mL Comprehensive Metabolic Panel 05/13/17 Range/Units 05:24 Sodium 142 (137-145) mmol/L Potassium 3.5 L (3.6-5.0) mmol/L Chloride 103.8 (98-107) mmol/L Carbon Dioxide 25 (22-30) mmol/L BUN 14 (7-17) mg/dL Creatinine 0.6 L (0.7-1.2) mg/dL Glucose 105 H (65-100) mg/dL Calcium 9.7 (8.4-10.2) mg/dL AST 37 (5-40) units/L ALT 23 (7-56) units/L Alkaline Phosphatase 50 (35-129) units/L Total Protein 7.2 (6.3-8.2) g/dL Albumin 3.9 (3.9-5) g/dL - Imaging and Cardiology EKG: report reviewed (normal sinus rhythm: heart rate of 77/m)
== END 2017-05-13 17:07 | disposition home or self-care (01) | DRG 315 ==
LOC: ED 15:54 → 4A 23:04
PROVIDERS: ADMIT Internal Medicine; ATTEND Hospitalist
DX: I31.3 Pericardial effusion (noninflammatory) (principal); I24.9 Acute ischemic heart disease, unspecified; M62.82 Rhabdomyolysis; J44.9 Chronic obstructive pulmonary disease, unspecified; E78.00 Pure hypercholesterolemia, unspecified; G47.30 Sleep apnea, unspecified; M54.30 Sciatica, unspecified side; Z90.89 Acquired absence of other organs; Z87.891 Personal history of nicotine dependence; E78.5 Hyperlipidemia, unspecified; E83.52 Hypercalcemia; I11.0 Hypertensive heart disease with heart failure
CPT/HCPCS: 36415; 71275; 74176; 78452; 80053; 81001; 82550; 82553; 83690; 83880; 84484; 85025; 93005; 93010; 93017; 93306; 94660; 94760; A9502; J1650; J2270; J2405; J2785; J7030; J7042; Q9967

== ENCOUNTER 2017-05-30 13:12 | Emergency (ER) | payer SELFPAY ==
[2017-05-30 14:07] LABS: Eosinophils % (Auto) 3.9 % (0.0-4.3); Hematocrit 35.9 % (30.3-42.9); Hemoglobin 11.2 gm/dl (10.1-14.3); Mean Corpuscular HGB Conc 31 % (30-34); Mean Corpuscular Hemoglobin 29 pg (28-32); Mean Corpuscular Volume 93 fl (79-97); Platelet Count 337 K/mm3 (140-440); Red Blood Count 3.88 M/mm3 (3.65-5.03); Red Cell Distribution Width 14.7 % (13.2-15.2); White Blood Count 6.3 K/mm3 (4.5-11.0)
[2017-05-30 14:24] LABS: Alanine Aminotransferase 16 units/L (7-56); Albumin 4.1 g/dL (3.9-5); Alkaline Phosphatase 54 units/L (35-129); Anion Gap 19 mmol/L; BUN/Creatinine Ratio 23.33; Blood Urea Nitrogen 14 mg/dL (7-17); Calcium 10.5 mg/dL (8.4-10.2); Carbon Dioxide 23 mmol/L (22-30); Chloride 103.4 mmol/L (98-107); Glucose 118 mg/dL (65-100); Potassium 3.4 mmol/L (3.6-5.0); Sodium 142 mmol/L (137-145); Total Protein 8.1 g/dL (6.3-8.2)
[2017-05-30 14:41] LABS: Bilirubin,Urine NEG (Negative); Blood,Urine NEG (Negative); Ketones,Urine NEG (Negative); Leukocyte Esterase,Urine LG (Negative); Mucus,Urine FEW /HPF; Nitrite,Urine NEG (Negative); Urobilinogen,Urine < 2.0 mg/dL (<2.0)
[2017-05-30] MEDS ORDERED: CARAFATE PO ONE (17:25)
[2017-05-30] MEDS ORDERED: PEPCID IV ONE (17:25)
[2017-05-30] MEDS ORDERED: TORADOL IV ONE (17:25)
[2017-05-30] MEDS ORDERED: PROVENTIL IH ONE (17:25)
[2017-05-30] MEDS ORDERED: ALUM-MAG HYDROX-SIMETH 200-200-20MG/5ML PO ONE (17:25)
[2017-05-30] MEDS ORDERED: ATROVENT IH ONE (17:25)
--- NOTE | 2017-05-30 17:27 | Emergency Department Report ---
ED General Adult HPI - General Chief complaint: Chest Pain Stated complaint: CHEST PAIN X 2-3 WKS Time Seen by Provider: 05/30/17 17:14 Source: patient, EMS, RN notes reviewed, old records reviewed Mode of arrival: Stretcher Limitations: No Limitations - History of Present Illness Initial comments: This is a 56-year-old female. She is previously unknown to me. Patient reports a past medical history of COPD, hypertension, not currently on oxygen. The patient is brought to the hospital by EMS for chest pain. EMS gave oxygen, aspirin, nitroglycerin in the field. As per EMS documentation , patient complaining of chest pains. She complains of chest pain and it raised to her back for 2 weeks. Denies shortness of breath, abdominal pain, nausea, vomiting, diaphoresis. Of note, patient admitted to the hospital last month for chest pain, had a negative nuclear stress test, had a CT scan of her chest which demonstrated a probable pericardial effusion. She had an echocardiogram with demonstrated an ejection fraction of 40-45%. Also found to have mild rhabdomyolysis. Had a CT scan of her chest which was otherwise negative for pulmonary embolus, and an unremarkable CT scan of her abdomen pelvis. The patient today complains that "my COPD is acting up." She complains of bilateral breast pain, chest wall pain , back pain, cough, mucus production. She reports this pain is intermittent, and appears to be acutely worse. She does indicate that the pain has been going on and off for the past few weeks however. Reports that her pain increases with coughing, mucus production and palpation. -: Gradual Location: chest, back, abdomen Severity scale (0 -10): 5 Quality: aching Consistency: intermittent Improves with: rest Worsens with: movement Associated Symptoms: chest pain, cough, loss of appetite, weakness - Related Data Previous Rx's Medication Instructions Recorded Last Taken Type Levothyroxine [Synthroid] 50 mcg PO QAM #30 tablet 05/13/17 Unknown Rx Pravastatin Sodium [Pravastatin] 10 mg PO QHS #30 tablet 05/13/17 Unknown Rx amLODIPine [Norvasc] 10 mg PO DAILY #30 tablet 05/13/17 Unknown Rx oxyCODONE /ACETAMINOPHEN [Percocet 1 tab PO Q6H PRN #20 tablet 05/13/17 Unknown Rx 5/325 mg] Albuterol Sulfate [Proair 90 mcg IH Q4HR PRN #2 aer.[email or web address] 05/30/17 Unknown Rx Respiclick] Ipratropium [place] [Atrovent Hfa] 12.9 gm IH Q4HR #2 hfa.[email or web address] 05/30/17 Unknown Rx Ketorolac [Toradol] 10 mg PO Q6H PRN #20 tablet 05/30/17 Unknown Rx Allergies Allergy/AdvReac Type Severity Reaction Status Date / Time No Known Allergies Allergy Verified 05/11/17 19:57 ED Review of Systems ROS: Stated complaint: CHEST PAIN X 2-3 WKS Other details as noted in HPI Constitutional: malaise. denies: diaphoresis, fever Eyes: denies: vision change ENT: denies: epistaxis Respiratory: cough Cardiovascular: chest pain Gastrointestinal: abdominal pain Musculoskeletal: back pain, arthralgia Skin: denies: lesions Neurological: denies: weakness Psychiatric: anxiety ED Past Medical Hx - Past Medical History Hx Hypertension: Yes Hx COPD: Yes Additional medical history: THYROID. HIGH CHOLESTEROL. SCIATICA. SLEEP APNEA - CPAP - Surgical History Hx Appendectomy: Yes Additional Surgical History: . HERNIA REPAIR - Social History Smoking Status: Former Smoker Substance Use Type: None - Medications Home Medications: Home Medications Medication Instructions Recorded Confirmed Last Taken Type Levothyroxine [Synthroid] 50 mcg PO QAM #30 tablet 05/13/17 Unknown Rx Pravastatin Sodium [Pravastatin] 10 mg PO QHS #30 tablet 05/13/17 Unknown Rx amLODIPine [Norvasc] 10 mg PO DAILY #30 tablet 05/13/17 Unknown Rx oxyCODONE /ACETAMINOPHEN [Percocet 1 tab PO Q6H PRN #20 tablet 05/13/17 Unknown Rx 5/325 mg] Albuterol Sulfate [Proair 90 mcg IH Q4HR PRN #2 aer.[email or web address] 05/30/17 Unknown Rx Respiclick] Ipratropium [place] [Atrovent Hfa] 12.9 gm IH Q4HR #2 hfa.aer.ad 05/30/17 Unknown Rx Ketorolac [Toradol] 10 mg PO Q6H PRN #20 tablet 05/30/17 Unknown Rx ED Physical Exam - General Limitations: No Limitations General appearance: alert, in no apparent distress - Head Head exam: Present: atraumatic, normocephalic - Eye Eye exam: Present: normal appearance, EOMI. Absent: nystagmus - ENT ENT exam: Present: normal exam, normal orophraynx, mucous membranes moist, normal external ear exam - Neck Neck exam: Present: normal inspection, full ROM. Absent: tenderness, meningismus - Respiratory Respiratory exam: Present: normal lung sounds bilaterally, chest wall tenderness (there is reproducible chest and breast wall tenderness. There is no redness, pus or streaking. During the breast examination, I am escorted by nurse Skylar Ricketts). Absent: respiratory distress, wheezes, rales, rhonchi, stridor - Cardiovascular Cardiovascular Exam: Present: regular rate, normal rhythm, normal heart sounds. Absent: bradycardia, tachycardia, irregular rhythm, systolic murmur, diastolic murmur, rubs, gallop - GI/Abdominal GI/Abdominal exam: Present: soft, normal bowel sounds. Absent: distended, tenderness, guarding, rebound, rigid, pulsatile mass - Extremities Exam Extremities exam: Present: normal inspection, full ROM, normal capillary refill. Absent: pedal edema, joint swelling, calf tenderness - Back Exam Back exam: Present: normal inspection, full ROM. Absent: tenderness, CVA tenderness (R), CVA tenderness (L), muscle spasm, paraspinal tenderness, vertebral tenderness - Neurological Exam Neurological exam: Present: alert, oriented X3, normal gait, other (Extraocular movements intact. Tongue midline. No facial droop. Facial sensation intact to light touch in the V1, V2, V3 distribution bilaterally. 5 and 5 strength in 4 extremities.. Sensation is intact to light touch in 4 extremities.). Absent : motor sensory deficit - Psychiatric Psychiatric exam: Present: normal affect, normal mood - Skin Skin exam: Present: warm, dry, intact, normal color. Absent: rash ED Course Vital Signs 05/30/17 05/30/17 05/30/17 13:31 13:38 18:00 Temperature 98.5 F 98.5 F Pulse Rate 88 88 Respiratory 17 17 20 Rate Blood Pressure 106/60 Blood Pressure 106/60 [Right] O2 Sat by Pulse 97 97 Oximetry 05/30/17 05/30/17 19:11 20:13 Temperature Pulse Rate 80 Respiratory 18 12 Rate Blood Pressure Blood Pressure 137/85 [Right] O2 Sat by Pulse 100 96 Oximetry - Reevaluation(s) Reevaluation #1: 05/30/17 19:46 Current heart rate is 71 bpm. Saturating at 96% on room air. Blood pressure 139/70. Respirations 14-15/m. Reevaluation #2: 05/30/17 19:51 urinalysis is appreciated. The patient is asymptomatic. There is no CVA tenderness. She denies irritative and obstructive urinary symptoms. Given lack of symptoms, I see no indication for antibiotic therapy at this time. A culture will be sent, patient can follow-up. ED Medical Decision Making - Lab Data Result diagrams: 05/30/17 13:49 05/30/17 13:49 Vital Signs - 24 hr 05/30/17 05/30/17 05/30/17 13:31 13:38 18:00 Temperature 98.5 F 98.5 F Pulse Rate 88 88 Respiratory 17 17 20 Rate Blood Pressure 106/60 Blood Pressure 106/60 [Right] O2 Sat by Pulse 97 97 Oximetry 05/30/17 19:11 Temperature Pulse Rate Respiratory 18 Rate Blood Pressure Blood Pressure [Right] O2 Sat by Pulse 100 Oximetry Labs 05/30/17 05/30/17 05/30/17 13:49 13:49 14:20 WBC 6.3 RBC 3.88 Hgb 11.2 Hct 35.9 MCV 93 MCH 29 MCHC 31 RDW 14.7 Plt Count 337 Lymph % (Auto) 29.4 [place] % (Auto) 8.3 H Eos % (Auto) 3.9 Baso % (Auto) 1.0 Lymph # 1.9 [place] # 0.5 Eos # 0.2 Baso # 0.1 Seg Neutrophils % 57.4 Seg Neutrophils # 3.6 PT INR APTT Sodium 142 Potassium 3.4 L Chloride 103.4 Carbon Dioxide 23 Anion Gap 19 BUN 14 Creatinine 0.6 L Estimated GFR > 60 BUN/Creatinine Ratio 23.33 Glucose 118 H Calcium 10.5 H Total Bilirubin 0.40 Direct Bilirubin Indirect Bilirubin AST 24 ALT 16 Alkaline Phosphatase 54 Total Creatine Kinase Troponin T < 0.010 Total Protein 8.1 Albumin 4.1 Albumin/Globulin Ratio 1.0 Lipase Urine Color Yellow Urine Turbidity Turbid Urine pH 8.0 H Ur Specific [place] 1.019 Urine Protein 100 mg/dl Urine Glucose (UA) Neg Urine Ketones Neg Urine Blood Neg Urine Nitrite Neg Urine Bilirubin Neg Urine Urobilinogen < 2.0 Ur Leukocyte Esterase Lg Urine WBC (Auto) 93.0 H Urine RBC (Auto) 1.0 U Epithel Cells (Auto) 9.0 Amorphous Crystals 1+ Urine Mucus Few 05/30/17 05/30/17 05/30/17 18:10 18:10 18:10 WBC RBC Hgb Hct MCV MCH MCHC RDW Plt Count Lymph % (Auto) [place] % (Auto) Eos % (Auto) Baso % (Auto) Lymph # [place] # Eos # Baso # Seg Neutrophils % Seg Neutrophils # PT 14.3 INR 1.12 APTT 32.3 Sodium Potassium Chloride Carbon Dioxide Anion Gap BUN Creatinine Estimated GFR BUN/Creatinine Ratio Glucose Calcium Total Bilirubin 0.30 Direct Bilirubin < 0.2 Indirect Bilirubin 0.1 AST 22 ALT 16 Alkaline Phosphatase 55 Total Creatine Kinase 527 H Troponin T < 0.010 Total Protein 7.8 Albumin 4.3 Albumin/Globulin Ratio 1.2 Lipase 26 Urine Color Urine Turbidity Urine pH Ur Specific [place] Urine Protein Urine Glucose (UA) Urine Ketones Urine Blood Urine Nitrite Urine Bilirubin Urine Urobilinogen Ur Leukocyte Esterase Urine WBC (Auto) Urine RBC (Auto) U Epithel Cells (Auto) Amorphous Crystals Urine Mucus - EKG Data -: EKG Interpreted by Me - EKG Data 05/30/17 19:46 EKG #1 demonstrates sinus, 88 bpm, left axis deviation, left ventricular hypertrophy, poor R progression, abnormal EKG, which her ventricular contraction. This EKG is morphologically unchanged from prior EKG from 05/11/2017. EKG #2 demonstrates sinus, 76 bpm, left axis deviation, left ventricular hypertrophy, abnormal EKG, not consistent with STEMI, unchanged from prior. - Radiology Data Radiology results: image reviewed interpreted by me: One view x-ray of the chest is negative for acute disease - Medical Decision Making Differential diagnosis: COPD exacerbation, pneumonia, acute coronary syndrome, pericarditis, costochondritis Assessment and plan: 56-year-old female with acute on chronic chest pain, cough. She was recently admitted to this hospital for chest pain, and had an appropriate ACS risk stratification. The patient is low risk by AGATHA score, low risk by Haert's score, troponins negative multiple times, EKG unchanged today 2, and unchanged from prior EKG. X-ray of the chest is negative, patient recently ruled out for pulmonary embolus, she is treated symptomatically with albuterol, pain medication, Toradol. Patient has essentially chronic complaints, and objectively speaking I see no indication to admit the patient to the hospital. She can follow up with outpatient primary care doctor for her chest pain, and COPD. Critical care attestation.: If time is entered above; I have spent that time in minutes in the direct care of this critically ill patient, excluding procedure time. ED Disposition Clinical Impression: Chest wall pain, Cough Disposition: TO HOME OR SELFCARE Is pt being admited?: No Does the pt Need Aspirin: No Condition: Stable Instructions: Chronic Bronchitis (ED) Additional Instructions: Cultures were sent today, results will be available in the next 3-5 days. Have a primary care doctor contact the medical records department to obtain culture results. Follow-up with a primary care doctor, door serviceman or building components designer within the next 7-[address] Ramos is a local door serviceman. Dr. Amin is a local primary care doctor. Dr. Katz is a local lung specialist. Return to the ER right away with pain, worsened pain, migration of pain, fevers, chills, worsening pain, intractable nausea or vomiting, inability to tolerate liquid feeds. Prescriptions: Albuterol Sulfate [Proair Respiclick] 90 mcg IH Q4HR PRN #2 aer.pow.ba PRN Reason: Wheezing Ipratropium [place] [Atrovent Hfa] 12.9 gm IH Q4HR #2 hfa.aer.ad Ketorolac [Toradol] 10 mg PO Q6H PRN #20 tablet PRN Reason: Pain Referrals: WESLEY MERRITT MD [Primary Care Provider] - 3-5 Days FILI RAMOS MD [Staff Physician] - 3-5 Days KATIE KATZ MD [Staff Physician] - 3-5 Days BETITO AMIN MD [Staff Physician] - 3-5 Days
[2017-05-30 18:33] LABS: INR 1.12 (0.87-1.13)
[2017-05-30 18:34] LABS: Partial Thromboplastin Time 32.3 Sec. (24.2-36.6)
[2017-05-30 18:52] LABS: Alanine Aminotransferase 16 units/L (7-56); Albumin 4.3 g/dL (3.9-5); Albumin/Globulin Ratio 1.2 %; Alkaline Phosphatase 55 units/L (35-129); Lipase 26 units/L (13-60); Total Protein 7.8 g/dL (6.3-8.2)
[2017-05-30 18:56] LABS: Creatine Kinase 527 units/L (30-135)
[2017-05-30 19:15] LABS: Bilirubin,Direct < 0.2 mg/dL (0-0.2); Bilirubin,Indirect 0.1 mg/dL
[2017-05-30 20:14] VITALS: BP 137/85
--- NOTE | 2017-05-31 09:04 | XRay Report ---
Single view chest: History: Chest pain. Findings: Cardiomegaly. Trachea is midline. No consolidation, pneumothorax or pleural effusion. Impression: Cardiomegaly. No acute lung changes.
== END 2017-05-30 20:20 | disposition home or self-care (01) ==
LOC: ED 13:12
DX: R07.89 Other chest pain (principal); R05 Cough; I10 Essential (primary) hypertension; J44.9 Chronic obstructive pulmonary disease, unspecified; Z87.891 Personal history of nicotine dependence
CPT/HCPCS: 36415; 71010; 80053; 80074; 81001; 82550; 83690; 84484; 85025; 85610; 85730; 87076; 87086; 87186; 93005; 93010; 94640; 96374; 96375; 99284; J1885

== ENCOUNTER 2018-02-04 12:21 | Outpatient (CLI) | payer MEDICAID ==
--- NOTE | 2018-02-06 13:24 | Mammography Report ---
BILATERAL DIGITAL SCREENING MAMMOGRAM with CAD: 02/04/18 12:21:00 CLINICAL: Routine screening. COMPARISON:None available. FINDINGS: The breasts are almost entirely fatty. No mass, architectural distortion or suspicious calcifications. IMPRESSION: No mammographic evidence of malignancy. BI-RADS CATEGORY: 1 - - Negative RECOMMENDATION: Routine mammographic screening in one year. COMMENT: Patient follow-up letters are generated by our [employer] application.
== END 2018-02-04 12:22 | disposition home or self-care (01) ==
LOC: MAMMO 12:21
PROVIDERS: ATTEND Advanced Practice Midwife
DX: Z12.31 Encounter for screening mammogram for malignant neoplasm of breast (principal)
CPT/HCPCS: 77067